=== PATIENT | male | born 1965 | race Caucasian/White ===

== ENCOUNTER 2016-11-03 16:29 | Observation (INO) | payer SELFPAY ==
[~2016-11-03] VITALS: Ht 188 cm; Wt 74.5 kg
--- NOTE | 2016-11-03 17:42 | ED ORDER SUMMARY ---
..... Patient: MARCELL SUÁREZ [facility] VisitID: [id number] [place] [address] 51y, M Registration Date/Time: 11/03/2016 ORDER SHEET Weight: 77.1 kg (stated) Allergies: None GENERAL ORDERS: Wrist 3 or 4V Left Urgent (16:43 11/03/2016 EKoroleva P.A.-C) (Ack 16:47 PWeiler ER Tech1) (17:58 KPage-Kuchan R.N.) Splint (UE) (Left) (sugar tong) (sugar tong) (17:08 11/03/2016 Ana Curtis) (Ack 17:10 PWeiler ER Tech1) (17:58 KPage-Kuchan R.N.) Wrist 2V Left Urgent (17:29 11/03/2016 Ana Curtis) (Ack 17:32 PWeiler ER Tech1) (17:58 KPage-Kuchan R.N.) Breathalyzer (18:04 11/03/2016 EKoroleva P.A.-C) (18:29 KPage-Kuchan R.N.) MEDICATION ORDERS: Motrin PO 800 mg (NOW) (17:01 11/03/2016 EKoroleva P.A.-C) (Cancelled: Verbal per Lbsnxeqct65:29 KWilliams R.N.) Lidocaine Injection 2 % (soln) (place at bedside, with syringes & needles) (17:08 11/03/2016 Ana Curtis) (Ack 17:18 RMarsden R.N.) (17:20 RMarsden R.N.) IV FLUIDS: Dilaudid IV 1 mg (HIGH ALERT MEDICATION, NOW) (17:08 11/03/2016 Ana Curtis) (Ack 17:18 RMarsden R.N.) (17:20 RMarsden R.N.) Morphine IV 2 mg (HIGH ALERT MEDICATION, NOW) (17:30 11/03/2016 Ana Curtis) (Cancelled: Other17:31 Ana Curtis) Dilaudid IV 0.5 mg (HIGH ALERT MEDICATION, NOW) (18:03 11/03/2016 Evonne Hernandez) (Ack 18:05 Leonard Quinones) (18:29 Leonard Turner.) Dilaudid IV 0.5 mg (HIGH ALERT MEDICATION, NOW) (18:09 11/03/2016 Evonne Hernandez) (18:29 Leonard Taylor.Maureen.) ORDER SHEET NOTES: [Electronically signed by Cecile Selby P.A.-C (18:32 11/03/2016)] [Electronically signed by Christina Logan R.N. (15:13 11/04/2016)] [Electronically locked/signed by Christina Logan R.N. (15:13 11/04/2016)]
--- NOTE | 2016-11-03 17:42 | ED ORDER SUMMARY ---
..... Patient: MARCELL SUÁREZ OrderSheet [facility] VisitID: [id number] [place] [address] 51y, M Registration Date/Time: 11/03/2016 ORDER SHEET Weight: 77.1 kg (stated) Allergies: None GENERAL ORDERS: Wrist 3 or 4V Left Urgent (16:43 11/03/2016 EKoroleva P.A.-C) (Ack 16:47 PWeiler ER Tech1) (17:58 KPage-Kuchan R.N.) Splint (UE) (Left) (sugar tong) (sugar tong) (17:08 11/03/2016 Ana Curtis) (Ack 17:10 PWeiler ER Tech1) (17:58 KPage-Kuchan R.N.) Wrist 2V Left Urgent (17:29 11/03/2016 Ana Curtis) (Ack 17:32 PWeiler ER Tech1) (17:58 KPage-Kuchan R.N.) Breathalyzer (18:04 11/03/2016 EKoroleva P.A.-C) (18:29 KPage-Kuchan R.N.) MEDICATION ORDERS: Motrin PO 800 mg (NOW) (17:01 11/03/2016 EKoroleva P.A.-C) (Cancelled: Verbal per Giffgynob40:29 KWilliams R.N.) Lidocaine Injection 2 % (soln) (place at bedside, with syringes & needles) (17:08 11/03/2016 Ana Curtis) (Ack 17:18 RMarsden R.N.) (17:20 RMarsden R.N.) IV FLUIDS: Dilaudid IV 1 mg (HIGH ALERT MEDICATION, NOW) (17:08 11/03/2016 Ana Curtis) (Ack 17:18 RMarsden R.N.) (17:20 RMarsden R.N.) Morphine IV 2 mg (HIGH ALERT MEDICATION, NOW) (17:30 11/03/2016 Ana Curtis) (Cancelled: Other17:31 Ana Curtis) Dilaudid IV 0.5 mg (HIGH ALERT MEDICATION, NOW) (18:03 11/03/2016 Evonne Hernandez) (Ack 18:05 Leonard Quinones) (18:29 Leonard Turner.) Dilaudid IV 0.5 mg (HIGH ALERT MEDICATION, NOW) (18:09 11/03/2016 Evonne Hernandez) (18:29 Leonard Taylor.Maureen.) ORDER SHEET NOTES: [Electronically signed by Cecile Selby P.A.-C (18:32 11/03/2016)] [Electronically signed by Christina Logan R.N. (15:13 11/04/2016)] [Electronically locked/signed by Christina Logan R.N. (15:13 11/04/2016)]
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
--- NOTE | 2016-11-03 18:23 | DIAGNOSTIC IMAGING REPORT ---
PROCEDURE: XR WRIST MIN 3 VIEWS - LEFT INDICATION: TRAUMA/INJURY TECHNIQUE: Four views. COMPARISON: None. FINDINGS: Comminuted intra-articular impacted distal radius fracture with mild displacement of the fragments. Normal joint spaces. There is soft tissue swelling. IMPRESSION: 1. Impacted comminuted intra-articular left radius fracture.
--- NOTE | 2016-11-03 18:25 | DIAGNOSTIC IMAGING REPORT ---
PROCEDURE: XR WRIST 1 OR 2 VIEWS - LEFT INDICATION: POST REDUCTION TECHNIQUE: AP and lateral views. COMPARISON: Left wrist x-ray 11/03/2016. FINDINGS: Interval placement of a splint. No appreciable change in the impacted comminuted intra-articular fracture of the distal left radius with mild displacement IMPRESSION: 1. Splinted stable impacted comminuted intra-articular distal radius fracture.
[2016-11-03 20:11] VITALS: BP 119/69
[2016-11-03 23:25] VITALS: BP 138/83
[2016-11-04] VITALS (13 sets, daily range): BP systolic 120–154; BP diastolic 62–93
--- NOTE | 2016-11-04 06:48 | DIAGNOSTIC IMAGING REPORT ---
PROCEDURE: XR CHEST 1 VIEW INDICATION: COPD Preop TECHNIQUE: Portable AP view 05:57 a.m. COMPARISON: Chest x-ray 12/14/2012 FINDINGS: Lungs are clear. Heart and mediastinum are normal. Thorax is normal. IMPRESSION: 1. Negative chest.
--- NOTE | 2016-11-04 13:16 | Postoperative Progress Note ---
Postop Progress Note Preoperate Diagnosis: Fracture left wrist Postoperative Diagnosis: Same Surgeon: Eduardo Faust MD Anesthesia: General ETT Findings: Fracture left wrist Procedure: Patient was taken to the operating room where he was given a general anesthetic and a tourniquet applied to the left arm. The tourniquet was placed but was not used during the course of the procedure. The arm was prepped and draped in the usual sterile fashionand then curving volar longitudinal incision was made over the distal radius. We gently bluntly dissected down to the volar aspect of the bone and soft tissue and pronator quadratus were dissected away from the bone exposing the volar aspect of the distal radius and the fracture site. A plate from the [employer] set was selected and placed on the volar aspect of the radius and then secured with 2 screws drilling each with the supplied drill from the set measuring the depth gauge and placing appropriate length of screw into the bone proximal to the fracture fracture was then reduced as best as possible and to get to neutral may be as much as 5 of volar angulation with flexion of the wrist in longitudinal traction. Multiple smooth pins were then placed in the plate and locked into position drilling each of the pin sites with the supplied special drill measuring the depth gauge and then placing the appropriate length pin. With this the fracture was stabilized and was in satisfactory position viewing the fracture and the joint in multiple projections with a fluoroscopy C-arm device showed the fracture to be stable and no evidence of impingement of the pins on the joint. The most proximal screw hole and the plate was then filled again supplying with the supplied drill and placing the appropriate length of self-tapping screw. The wound was irrigated with sterile saline solution and then closed with 2-0 Polysorb interrupted subcutaneous suture and a 3-0 Polysorb running subcuticular skin suture. He was dressed with Xeroform, gauze, and an ABD pad. he was then wrapped with sterile webril and a volar splint applied and secured in place with a loosely applied Cory bandage. He is awakened and taken to recovery room in stable condition. Complications? No Condition: Stable EBL: 50cc Blood Administered: 0 Specimen(s) removed? No Grafts or Implants? Yes Graft/Implant type: Erenis plate and screws . (See nursing notes for details of grafts/implants)
--- NOTE | 2016-11-04 13:27 | DIAGNOSTIC IMAGING REPORT ---
PROCEDURE: XR FLUOROSCOPY UP TO 1 HOUR INDICATION: ORIF LEFT WRIST, BIG C-ARM REQUESTED TECHNIQUE: C-arm fluoroscopy provided to Dr. Faust for ORIF Fluoroscopy time 1.56-minute 3.6 mGy). COMPARISON: None. FINDINGS: AP and lateral C-arm views. A side plate and screws fixing a distal radial fracture. IMPRESSION: 1. C-arm fluoroscopy for ORIF by Dr. Faust
--- NOTE | 2016-11-04 14:13 | DIAGNOSTIC IMAGING REPORT ---
PROCEDURE: XR ELBOW 1 OR 2 VIEWS - LEFT INDICATION: POST-OP IN PACU TECHNIQUE: Two views. COMPARISON: [place] 09/17/2005 FINDINGS: No fracture or dislocation. IMPRESSION: 1. No fracture.
--- NOTE | 2016-11-04 15:13 | ED MED RECONCILIATION SUMMARY ---
Patient: KATIAMARCELL LUU Medication Reconciliation Report [facility] VisitID: [id number] [address] [place] [address] 51y, M Registration Date/Time: 11/03/2016 Weight: 77.1 kg Height/Length: 74 in. BMI: 21.8 ALLERGIES: None The patient's Home Medications are listed below: NONE. The source(s) of the original Home Medication information: patient The following Medications were given to the patient in the Emergency Department: Dilaudid [IVP] IVP 1 mg, administered: 11/03/2016 5:15:00 PM Lidocaine [Injection] Injection 2 %, administered: 11/03/2016 5:15:00 PM Dilaudid [IVP] IVP 0.5 mg, administered: 11/03/2016 6:19:00 PM Dilaudid [IVP] IVP 0.5 mg, administered: 11/03/2016 6:19:00 PM The following Medications were prescribed to the patient: None.
--- NOTE | 2016-11-04 15:13 | ED MED RECONCILIATION SUMMARY ---
Patient: KATIAMARCELL LUU Medication Reconciliation Report [facility] VisitID: [id number] [address] [place] [address] 51y, M Registration Date/Time: 11/03/2016 Weight: 77.1 kg Height/Length: 74 in. BMI: 21.8 ALLERGIES: None The patient's Home Medications are listed below: NONE. The source(s) of the original Home Medication information: patient The following Medications were given to the patient in the Emergency Department: Dilaudid [IVP] IVP 1 mg, administered: 11/03/2016 5:15:00 PM Lidocaine [Injection] Injection 2 %, administered: 11/03/2016 5:15:00 PM Dilaudid [IVP] IVP 0.5 mg, administered: 11/03/2016 6:19:00 PM Dilaudid [IVP] IVP 0.5 mg, administered: 11/03/2016 6:19:00 PM The following Medications were prescribed to the patient: None.
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
--- NOTE | 2016-11-04 15:13 | ED MAR SUMMARY ---
..... Medication Administration Record [facility] [address] [place] [address] Patient: MARCELL SUÁREZ Visit ID: [id number] 51y, M Weight: 77.1 kg Height/Length: 74 in BMI: 21.8 ALLERGIES: None Given 17:11/03/2016 Mary Sylvester R.N. Medication Administered: LIDOCAINE [INJECTION], Dose: 2 % Injection. Medication Ordered: Lidocaine Injection 2 % (soln) (place at bedside, with syringes & needles). Given :11/03/2016 Mary Sylvester R.N. Medication Administered: DILAUDID [IVP] (HYDROMORPHONE HCL PF), Dose: 1 mg IVP over 2 minute(s), Site: #1 right forearm. Medication Ordered: Dilaudid IV 1 mg (HIGH ALERT MEDICATION, NOW). Given :11/03/2016 Christina Logan R.N. Medication Administered: DILAUDID [IVP] (HYDROMORPHONE HCL PF), Dose: 0.5 mg IVP, Site: #1 right forearm. Medication Ordered: Dilaudid IV 0.5 mg (HIGH ALERT MEDICATION, NOW). Given 11/03/2016 Christina Logan R.N. Medication Administered: DILAUDID [IVP] (HYDROMORPHONE HCL PF), Dose: 0.5 mg IVP, Site: #1 right forearm. Medication Ordered: Dilaudid IV 0.5 mg (HIGH ALERT MEDICATION, NOW).
--- NOTE | 2016-11-04 15:13 | ED MAR SUMMARY ---
..... Medication Administration Record [facility] [address] [place] [address] Patient: MARCELL SUÁREZ Visit ID: [id number] 51y, M Weight: 77.1 kg Height/Length: 74 in BMI: 21.8 ALLERGIES: None Given 17:11/03/2016 Mary Sylvester R.N. Medication Administered: LIDOCAINE [INJECTION], Dose: 2 % Injection. Medication Ordered: Lidocaine Injection 2 % (soln) (place at bedside, with syringes & needles). Given :11/03/2016 Mary Sylvester R.N. Medication Administered: DILAUDID [IVP] (HYDROMORPHONE HCL PF), Dose: 1 mg IVP over 2 minute(s), Site: #1 right forearm. Medication Ordered: Dilaudid IV 1 mg (HIGH ALERT MEDICATION, NOW). Given :11/03/2016 Christina Logan R.N. Medication Administered: DILAUDID [IVP] (HYDROMORPHONE HCL PF), Dose: 0.5 mg IVP, Site: #1 right forearm. Medication Ordered: Dilaudid IV 0.5 mg (HIGH ALERT MEDICATION, NOW). Given 11/03/2016 Christina Logan R.N. Medication Administered: DILAUDID [IVP] (HYDROMORPHONE HCL PF), Dose: 0.5 mg IVP, Site: #1 right forearm. Medication Ordered: Dilaudid IV 0.5 mg (HIGH ALERT MEDICATION, NOW).
[2016-11-05 03:24] VITALS: BP 125/81
[2016-11-05 06:42] VITALS: BP 135/93
--- NOTE | 2016-11-05 08:17 | Progress Note ---
Subjective General VSS Afeb Mild edema, NMV intact splint in good condition. DC today.
--- NOTE | 2016-11-05 08:17 | Progress Note ---
Subjective General VSS Afeb Mild edema, NMV intact splint in good condition. DC today.
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
[2016-11-05] MEDS ORDERED: NORCO1 TA1 PO (08:21)
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
[2016-11-05 09:38] VITALS: BP 126/90
== END 2016-11-05 10:30 | disposition home or self-care (01) ==
LOC: ED SRH 16:29 → TRANS SRH 17:48 → ACUTE2 SRH 17:48 → TRANS SRH 17:48 → ACUTE2 SRH 19:40
PROVIDERS: Orthopaedic Surgery; ADMIT Student in an Organized Health Care Education/Training Program
PROC: 0PSJ04Z Reposition Left Radius with Internal Fixation Device, Open Approach (ICD-10-PCS; principal; 2016-11-04 10:30)
DX: S52.572A Other intraarticular fracture of lower end of left radius, initial encounter for closed fracture (principal); V18.4XXA Pedal cycle driver injured in noncollision transport accident in traffic accident, initial encounter; Y93.55 Activity, bike riding; Y92.410 Unspecified street and highway as the place of occurrence of the external cause; Y99.8 Other external cause status; F10.120 Alcohol abuse with intoxication, uncomplicated; J44.9 Chronic obstructive pulmonary disease, unspecified; F17.210 Nicotine dependence, cigarettes, uncomplicated